=== PATIENT | female | born 1975 | race African-American/Black ===

== ENCOUNTER 2018-03-03 23:59 | Emergency (ER) | payer SELFPAY ==
[2018-03-04 00:07] VITALS: PULSE 95; TEMP 98.4; BMI 31.1
--- NOTE | 2018-03-04 00:07 | PDOC ---
History of Present Illness - General Chief Complaint: Pain, Acute Stated Complaint: CHEST PAIN Time Seen by Provider: 03/04/18 00:01 - History of Present Illness Initial Comments: 03/04/18 00:48 This 43-year-old woman with a history of HTN/smoking presents with a few hour history of lightheadedness and "not feeling right". She stopped in the ER as she was driving home to [place] from the airport where she dropped someone off. She states that she ate a large amount of food today because she "craved sweets" and has vague epigastric discomfort but otherwise had been feeling well. Otherwise, she did not have chest pain/shortness of breath/diaphoresis/ nausea. She had been treated for her hypertension (lisinopril 5 mg daily) until approximately one year ago when she stopped taking it. Patient states that she has not seen her doctor since. No history of hyperlipidemia/family history of early cardiac disease/DM/obesity LMP approx 3 weeks ago("no possibility I'm ") Not currently on any medications No known ALLERGIES Smokes half pack of cigarettes daily Past History - Past Medical History Allergies/Adverse Reactions: Allergies Allergy/AdvReac Type Severity Reaction Status Date / Time No Known Allergies Allergy Verified 03/04/18 00:02 Home Medications: Ambulatory Orders Lisinopril 5 mg PO DAILY #20 tablet 03/04/18 Review of Systems - Review of Systems Able to Perform ROS?: Yes Comments:: 12 point review of systems is negative except for what is noted in the history of present illness *Physical Exam - Physical Exam Comments: GENERAL: Adult female, alert and oriented 3, in no acute distress HEAD: Normal with no signs of trauma. EYES: PERRLA, EOMI, sclera anicteric, conjunctiva clear. ENT: Ears normal, nares patent, oropharynx clear without exudates. Moist mucous membranes. NECK: Normal range of motion, supple without lymphadenopathy, JVD, or masses. LUNGS: Breath sounds equal, clear to auscultation bilaterally. No wheezes, and no crackles. CHEST WALL: Mild tenderness to palpation of the manubrium; no crepitus or step offs palpated HEART:Regular rate and rhythm, normal S1 and S2 without murmur, rub or gallop. ABDOMEN:.normal bowel sounds No guarding,tenderness or rebound.No masses No distention. EXTREMITIES: Normal range of motion, no edema. No clubbing or cyanosis. No erythema, or tenderness. NEUROLOGICAL: Cranial nerves II through XII grossly intact. Normal speech. No focal neurological deficits. MUSCULOSKELETAL: Back non-tender to palpation, no CVA tenderness SKIN: Warm, Dry, normal turgor, no rashes or lesions noted. 12-lead electrocardiogram is performed and interpreted by me: Normal sinus rhythm at 89 bpm. Intervals, wave forms and axis are all normal. No evidence of acute ST or T-wave abnormalities. No evidence of cardiac arrhythmia Heart Score/ECG Review - History History: Slightly suspicious - Electrocardiogram EKG: Normal - Age Age: </= 45 - Risk Factors Risk Factors Heart Score: Yes Hx Hypertension, Yes Smoking History Based on the list above the patient has:: 1-2 risk factors - Troponin Troponin: </= normal limit - Score Heart Score - Total: 1 ED Treatment Course - LABORATORY CBC & Chemistry Diagram: 03/04/18 00:40 03/04/18 00:40 Medical Decision Making - Medical Decision Making This 43-year-old woman with a history of hypertension presents with a few hour history of lightheadedness and "not feeling well". Patient had been driving home from dropping somewhat off at the airport; she denies extensive driving or other prolonged lack of activity. She specifically denies chest pain/shortness of breath/diaphoresis/nausea. She admits to eating a large amount of food today (which she states she commonly does the week before her menstrual period) . Past history notable for treatment of her hypertension for a few years with lisinopril 5 mg daily. The patient had no side effects from this medication but stopped that about a year ago, she felt better and did not want to be taking a daily medication. Exam, as noted is unremarkable except for elevated blood pressure (193/106) and 12-lead electrocardiogram is normal. Because of patient's risk factors (hypertension/smoking) for coronary artery disease, troponin level will be evaluated as well as CBC and chemistry profile. 03/04/18 02:40 Repeat BP reading (no medication given) 155/88. Patient feels better. Laboratory evaluation reveals normal CBC; pressure profile is essentially normal and troponin is not elevated. Patient will be discharged with follow-up with her general medical doctor. Meanwhile, she should avoid high sodium/high processed food diet and begin moderate exercise. Patient asked for prescription for lisinopril 5 mg she had been taking in the past, since appointments for her PMD are typically difficult to arrange for a few weeks. Prescription for a limited amount (#20) tablets of lisinopril 5 mg sent to her pharmacy. If she has any recurrence of today's lightheadedness/malaise or experiences chest pain/shortness of breath, she should return here or see her nearest medical facility *DC/Admit/Observation/Transfer Diagnosis at time of Disposition: Hypertension Qualifiers: Hypertension type: unspecified Qualified Code(s): I10 - Essential (primary) hypertension - Discharge Dispostion Disposition: HOME Condition at time of disposition: Stable - Prescriptions Prescriptions: Lisinopril 5 mg PO DAILY #20 tablet - Referrals Referrals: Fede Beltran [Primary Care Provider] - - Patient Instructions Printed Discharge Instructions: DI for Atypical Chest Pain, Low-Sodium Diet Additional Instructions: continue to drink plenty of water Low-sodium diet Moderate exercise as discussed Lisinopril 5 mg daily Follow-up with your doctor within the next 5-7 days (call office tomorrow) Return or see nearest health facility if you have persistent chest pain/ shortness of breath - Post Discharge Activity
[2018-03-04 01:27] LABS: BASO % 0.5 % (0-2.0); EOS % 1.2 % (0-4.5); HEMATOCRIT 41.4 % (32.4-45.2); HEMOGLOBIN 13.7 GM/dL (10.7-15.3); LYMPH % 21.8 % (8-40); MCH 27.9 pg (25.7-33.7); MEAN CELL VOLUME 84.4 fl (80-96); MONO % 7.2 % (3.8-10.2); NEUT % 69.3 % (42.8-82.8); PLATELET COUNT 226 K/MM3 (134-434); RBC 4.91 M/mm3 (3.60-5.2); RDW 13.9 % (11.6-15.6); WHITE BLOOD COUNT 11.1 K/mm3 (4.0-10.0)
[2018-03-04 01:51] LABS: ALBUMIN 3.3 g/dl (3.4-5.0); ANION GAP 7 MMOL/L (8-16); BILIRUBIN,TOTAL 0.2 mg/dL (0.2-1); BLOOD UREA NITROGEN 15 mg/dL (7-18); CALCIUM 8.3 mg/dL (8.5-10.1); CHLORIDE 107 mmol/L (98-107); CO2 27 mmol/L (21-32); CREATININE 0.5 mg/dL (0.55-1.3); GLUCOSE,RANDOM 114 mg/dL (74-106); POTASSIUM 3.9 mmol/L (3.5-5.1); SGOT/AST 18 U/L (15-37); SGPT/ALT 35 U/L (13-61); SODIUM 141 mmol/L (136-145); TOT PROT 6.4 g/dl (6.4-8.2)
[2018-03-04 01:54] LABS: ALK PHOS 75 U/L (45-117)
[2018-03-04 02:00] VITALS: BP 154/88
[2018-03-04] MEDS ORDERED: LISINOPRIL 5 MG TABLET (FP) ONE (02:08)
--- NOTE | 2018-03-04 16:44 | EKG ---
Test Reason : Blood Pressure : / mmHG Vent. Rate : 089 BPM Atrial Rate : 089 BPM P-R Int : 162 ms QRS Dur : 080 ms QT Int : 352 ms P-R-T Axes : 052 031 036 degrees QTc Int : 428 ms NORMAL SINUS RHYTHM NORMAL ECG NO PREVIOUS ECGS AVAILABLE Confirmed by Casey Alcaraz ([id number]) on 03/04/2018 4:44:11 PM Referred By: MD COBB Confirmed By:Casey Alcaraz
== END 2018-03-04 02:30 | disposition home or self-care (01) ==
LOC: FER 23:59
DX: I10 Essential (primary) hypertension (principal)
CPT/HCPCS: 36415; 80053; 82550; 84484; 85025; 93005; 99281-25